=== PATIENT | female | born 1955 | race Caucasian/White ===

== ENCOUNTER → 2016-08-23 | Outpatient (CLI) | payer MEDICARE ==
--- NOTE | 2016-08-23 17:37 | REPMRS ---
Patient History The patient states she has not had a clinical breast exam in over a year. Patient is postmenopausal and has history of cancer in the left breast at age 56. Family history of endometrial cancer in sister at age 55. Malignant excisional biopsy of the left breast, 2011. Radiation therapy of the left breast, 2011. Took tamoxifen for 4 years. Digital Woman Screen Mammo: August 23, 2016 - Exam #: [id number] Bilateral CC and MLO view(s) were taken. Technologist: Jackelyn Mak, Technologist Prior study comparison: October 22, 2015, digital woman screen mammo performed at [facility]. October 08, 2014, digital woman screen mammo performed at [facility]. FINDINGS: There are scattered fibroglandular densities. There is a fairly symmetric fibroglandular pattern in both breasts. There has been no interval development of masses, areas of architectural distortion or clusters of microcalcifications typical of malignancy. ASSESSMENT: BI-RADS/ACR category 2 mammogram. Benign finding(s). Recommendation Routine screening mammogram of both breasts in 1 year (for women over age 40). This mammogram was interpreted with the aid of an FDA-approved computer-aided dectection system. Electronically Signed By: Timur Edwards MD 08/23/16 [id number]
== END ==
LOC: M WHC 14:36
PROVIDERS: ATTEND Nurse Practitioner Adult Health
DX: Z12.31 Encounter for screening mammogram for malignant neoplasm of breast (principal)

== ENCOUNTER → 2017-01-11 | Outpatient (REF) | payer MEDICARE ==
[2017-01-11 13:38] LABS: MEAN CORPUSCULAR HGB CONC 32.5 g/dl (32.0-36.5); MEAN CORPUSCULAR VOLUME 89.4 fl (80.0-96.0); RED CELL DISTRIBUTION WIDTH 14.8 % (11.5-14.5); WHITE BLOOD COUNT 7.7 10^3/uL (4.0-10.0)
[2017-01-11 14:02] LABS: ALBUMIN 3.9 GM/DL (3.2-5.2); ALBUMIN/GLOBULIN RATIO 0.93 (1.00-1.93); ALKALINE PHOSPHATASE 114 U/L (45-117); ALT/SGPT 32 U/L (12-78); ANION GAP 10 MEQ/L (8-16); AST/SGOT 14 U/L (15-37); BILIRUBIN,TOTAL 0.5 MG/DL (0.2-1.0); BLOOD UREA NITROGEN 18 MG/DL (7-18); CALCIUM LEVEL 9.9 MG/DL (8.8-10.2); CARBON DIOXIDE LEVEL 27 MEQ/L (21-32); CHLORIDE LEVEL 100 MEQ/L (98-107); CHOLESTEROL LEVEL 279 MG/DL (<200); CREATININE FOR GFR 0.82 MG/DL (0.55-1.02); GLOMERULAR FILTRATION RATE > 60.0 (>45); GLUCOSE, FASTING 111 MG/DL (80-110); POTASSIUM SERUM 4.6 MEQ/L (3.5-5.1); SODIUM LEVEL 137 MEQ/L (136-145); TOTAL PROTEIN 8.1 GM/DL (6.4-8.2); TRIGLYCERIDES LEVEL 167 MG/DL (<150)
== END ==
LOC: M SFHCPLAZ 08:54
PROVIDERS: ATTEND Nurse Practitioner Adult Health
DX: Z00.00 Encounter for general adult medical examination without abnormal findings (principal); E78.2 Mixed hyperlipidemia; R73.01 Impaired fasting glucose

== ENCOUNTER → 2017-05-22 | Outpatient (REF) | payer MEDICARE, BC ==
[2017-05-23 09:14] LABS: HEMATOCRIT 47.2 % (36.0-47.0); HEMOGLOBIN 15.1 g/dl (12.0-16.0); MEAN CORPUSCULAR VOLUME 90.9 fl (80.0-96.0); RED BLOOD COUNT 5.19 10^6/uL (4.00-5.40); WHITE BLOOD COUNT 7.9 10^3/uL (4.0-10.0)
[2017-05-23 09:15] LABS: BASO # 0.1 10^3/uL (0.0-0.2); BASO % 0.6 % (0.0-1.0); EOS # 0.2 10^3/uL (0.0-0.50); EOS % 2.2 % (0.0-3.0); IMMATURE GRANULOCYTE % 0.3 % (0-3.0); LYMPH # 1.8 10^3/uL (1.5-4.5); LYMPH % 22.3 % (24.0-44.0); MEAN CORPUSCULAR HEMOGLOBIN 29.1 pg (27.0-33.0); MONO # 0.4 10^3/uL (0.0-0.8); MONO % 4.8 % (0.0-5.0); NEUTROPHILS # 5.5 10^3/uL (1.8-7.7); NEUTROPHILS % 69.8 % (36.0-66.0); PLATELET COUNT, AUTOMATED 370 10^3/uL (150-450); RED CELL DISTRIBUTION WIDTH 14.1 % (11.5-14.5)
[2017-05-23 09:16] LABS: BLOOD UREA NITROGEN 15 MG/DL (7-18); GLUCOSE, FASTING 113 MG/DL (70-100)
[2017-05-23 09:17] LABS: ALKALINE PHOSPHATASE 109 U/L (45-117); ALT/SGPT 19 U/L (12-78); ANION GAP 9 MEQ/L (8-16); AST/SGOT 15 U/L (7-37); BILIRUBIN,TOTAL 0.5 MG/DL (0.2-1.0); CALCIUM LEVEL 9.5 MG/DL (8.8-10.2); CARBON DIOXIDE LEVEL 30 MEQ/L (21-32); CHLORIDE LEVEL 102 MEQ/L (98-107); CHOLESTEROL LEVEL 205 MG/DL (<200); CREATININE FOR GFR 0.77 MG/DL (0.55-1.30); GLOMERULAR FILTRATION RATE > 60.0 (>45); POTASSIUM SERUM 4.7 MEQ/L (3.5-5.1); SODIUM LEVEL 141 MEQ/L (136-145); TRIGLYCERIDES LEVEL 146 MG/DL (<150)
[2017-05-23 09:18] LABS: ALBUMIN 3.8 GM/DL (3.2-5.2); ALBUMIN/GLOBULIN RATIO 0.86 (1.00-1.93); CHOLESTEROL RISK RATIO 2.928 (<5); HDL CHOLESTEROL 70 MG/DL (>40); LDL CHOLESTEROL 105.8 MG/DL (<100); NON-HDL-C 135 MG/DL; TOTAL PROTEIN 8.2 GM/DL (6.4-8.2)
== END ==
LOC: M SFHCADAM 05-23 09:03
DX: R73.01 Impaired fasting glucose (principal); I10 Essential (primary) hypertension
CPT/HCPCS: 80053

== ENCOUNTER → 2018-01-11 | Outpatient (CLI) | payer MEDICARE | LOC: M WHC 13:13 | DX: Z12.31 Encounter for screening mammogram for malignant neoplasm of breast (principal) | CPT/HCPCS: 77067 ==

== ENCOUNTER → 2018-07-09 | Outpatient (REF) | payer MEDICARE ==
[2018-07-09 12:35] LABS: BASO % 0.5 % (0.0-1.0); EOS # 0.2 10^3/uL (0.0-0.50); EOS % 2.3 % (0.0-3.0); HEMOGLOBIN 14.4 g/dl (12.0-15.5); LYMPH % 26.5 % (24.0-44.0); MEAN CORPUSCULAR HEMOGLOBIN 29.6 pg (27.0-33.0); MEAN CORPUSCULAR HGB CONC 32.7 g/dl (32.0-36.5); MEAN CORPUSCULAR VOLUME 90.3 fl (80.0-96.0); MONO # 0.4 10^3/uL (0.0-0.8); MONO % 4.9 % (0.0-5.0); NEUTROPHILS # 4.8 10^3/uL (1.8-7.7); NEUTROPHILS % 65.3 % (36.0-66.0); PLATELET COUNT, AUTOMATED 355 10^3/uL (150-450); RED BLOOD COUNT 4.87 10^6/uL (4.00-5.40); WHITE BLOOD COUNT 7.4 10^3/uL (4.0-10.0)
[2018-07-09 13:15] LABS: ALBUMIN 3.7 GM/DL (3.2-5.2); ALT/SGPT 15 U/L (12-78); BILIRUBIN,TOTAL 0.4 MG/DL (0.2-1.0); BLOOD UREA NITROGEN 16 MG/DL (7-18); CALCIUM LEVEL 9.1 MG/DL (8.8-10.2); CARBON DIOXIDE LEVEL 25 MEQ/L (21-32); CHLORIDE LEVEL 104 MEQ/L (98-107); CREATININE FOR GFR 0.83 MG/DL (0.55-1.30); GLOMERULAR FILTRATION RATE > 60.0 (>45); GLUCOSE, FASTING 114 MG/DL (70-100); POTASSIUM SERUM 4.4 MEQ/L (3.5-5.1); SODIUM LEVEL 138 MEQ/L (136-145); TOTAL PROTEIN 7.5 GM/DL (6.4-8.2)
[2018-07-09 13:45] LABS: HEMOGLOBIN A1c 6.3 %
== END ==
LOC: M SFHCADAM 09:46
PROVIDERS: ATTEND Family Medicine
DX: I10 Essential (primary) hypertension (principal); R73.01 Impaired fasting glucose

== ENCOUNTER 2019-03-04 08:58 | Day surgery (SDC) | payer MEDICARE ==
[~2019-03-04] VITALS: Ht 160 cm; Wt 124.7 kg
[~2019-03-04 08:58] MED LIST: ASPI81TA85 PO; CLAR10CA3 PO; LISI-672 PO; NS 1,000 ML IV ONE; SIMV40TA20 PO; TRAM50TA2 PO
[2019-03-04] MEDS ORDERED: PROPOFOL 200 MG/20 ML VIAL As Ordered ONE (09:40)
[2019-03-04] MEDS ORDERED: LIDOCAINE 2% INJ 100 MG/5 ML SDV (FOR ANES.) As Ordered ONE (09:40)
--- NOTE | 2019-03-04 10:11 | ROOR ---
Patient Name: Roselyn Clark Procedure Date: 03/04/2019 9:39 AM Date of : 1955 Age: 64 Room: [facility] Gender: Female Note Status: Finalized Procedure: Colonoscopy Indications: High risk colon cancer surveillance: Personal history of colonic polyps Providers: Eugene OLIVEROS MD Referring MD: Trini KELLY DO Requestpati Provider: Medicines: Monitored Anesthesia Care Complications: No immediate complications. Procedure: Pre-Anesthesia Assessment: - The heart rate, respiratory rate, oxygen saturations, blood pressure, adequacy of pulmonary ventilation, and response to care were monitored throughout the procedure. The Colonoscope was introduced through the anus and advanced to the terminal ileum, with identification of the appendiceal orifice and IC valve. The colonoscopy was somewhat difficult due to inadequate bowel prep. The patient tolerated the procedure well. The quality of the bowel preparation was unsatisfactory. Findings: The perianal and digital rectal examinations were normal. Three sessile polyps were found in the sigmoid colon. The polyps were diminutive in size. These polyps were removed with a cold snare. Resection and retrieval were complete. Internal hemorrhoids were found during retroflexion. The hemorrhoids were moderate. Multiple medium-mouthed diverticula were found in the sigmoid colon. Impression: - Preparation of the colon was unsatisfactory. - Three diminutive polyps in the sigmoid colon, removed with a cold snare. Resected and retrieved. - Internal hemorrhoids. - Diverticulosis in the sigmoid colon. Recommendation: - Repeat colonoscopy in 1-2 years because the bowel preparation was poor. Eugene Oliveros MD Eugene OLIVEROS MD 03/04/2019 10:11:32 AM Electronically signed by Eugene OLIVEROS MD Number of Addenda: 0 Note Initiated On: 03/04/2019 9:39 AM Estimated Blood Loss: Estimated blood loss: none.
[2019-03-04 10:35] VITALS: BP 162/94
== END 2019-03-04 10:38 | disposition home or self-care (01) ==
LOC: M OPP 08:58
PROVIDERS: ATTEND Internal Medicine Gastroenterology
DX: Z12.11 Encounter for screening for malignant neoplasm of colon (principal); Z86.010 Personal history of colon polyps; K64.8 Other hemorrhoids; D12.5 Benign neoplasm of sigmoid colon; K57.30 Diverticulosis of large intestine without perforation or abscess without bleeding; Z79.82 Long term (current) use of aspirin; Z79.891 Long term (current) use of opiate analgesic; Z79.899 Other long term (current) drug therapy; Z85.3 Personal history of malignant neoplasm of breast

== ENCOUNTER → 2019-06-04 | Outpatient (CLI) | payer MEDICARE ==
[~2019-06-04] MED LIST changes: -NS 1,000 ML IV ONE
--- NOTE | 2019-06-04 14:45 | REPMRS ---
Patient History The patient states she had a clinical breast exam in March 2019. Family history of endometrial cancer at age 55 in sister. Malignant excisional biopsy of the left breast, 2011. Radiation therapy of the left breast, 2011. Took tamoxifen for 5 years. Digital Woman Screen Mammo: June 04, 2019 - Exam #: [id number] Bilateral CC and MLO view(s) were taken. Technologist: Jessi Montoya, RT Prior study comparison: January 11, 2018, bilateral digital woman screen mammo performed at [facility], [place]. August 23, 2016, digital woman screen mammo performed at [facility] [place]. October 22, 2015, digital woman screen mammo performed at [facility]. FINDINGS: There are scattered fibroglandular densities. There are stable post-treatment changes again noted in the left breast. There has been no change in the appearance of the mammogram from the prior studies. There is a mild amount of scattered fibroglandular density which is fairly symmetric. There is no interval development of dominant mass, architectural distortion, or grouped microcalcification suggestive of malignancy. 3-D tomosynthesis shows no additional findings. Assessment: BI-RADS/ACR category 2 mammogram. Benign Findings. Recommendation Routine screening mammogram of both breasts in 1 year (for women over age 40). This mammogram was interpreted with the aid of an FDA-approved computer-aided dectection system. Electronically Signed By: Allen Fuentes MD 06/04/19 [id number]
== END ==
LOC: M WHC 12:36
PROVIDERS: ATTEND Family Medicine
DX: Z12.31 Encounter for screening mammogram for malignant neoplasm of breast (principal)

== ENCOUNTER → 2020-04-01 | Outpatient (REF) | payer MEDICARE ==
[~2020-04-01] MED LIST changes: -ASPI81TA85 PO; +ASPI81TA86 PO; -LISI-672 PO; +LISI30TA4 PO
== END ==
LOC: M SFHCADAM 16:24
PROVIDERS: ATTEND Family Medicine
DX: R05 Cough (principal); Z11.52 Encounter for screening for COVID-19

== ENCOUNTER → 2020-05-27 | Outpatient (REF) | payer MEDICARE ==
[2020-05-27 12:54] LABS: BASO # 0.1 10^3/uL (0.0-0.2); BASO % 0.7 % (0.0-1.0); EOS # 0.1 10^3/uL (0.0-0.5); EOS % 1.3 % (0.0-3.0); HEMATOCRIT 47.2 % (36.0-47.0); HEMOGLOBIN 14.5 g/dl (12.0-15.5); LYMPH # 1.7 10^3/uL (1.5-5.0); LYMPH % 19.7 % (24.0-44.0); MEAN CORPUSCULAR HEMOGLOBIN 28.1 pg (27.0-33.0); MEAN CORPUSCULAR HGB CONC 30.7 g/dl (32.0-36.5); MEAN CORPUSCULAR VOLUME 91.5 fl (80.0-96.0); MONO # 0.4 10^3/uL (0.0-0.8); MONO % 4.6 % (2.0-8.0); NEUTROPHILS # 6.3 10^3/uL (1.5-8.5); NEUTROPHILS % 73.2 % (36.0-66.0); PLATELET COUNT, AUTOMATED 383 10^3/uL (150-450); RED BLOOD COUNT 5.16 10^6/uL (4.00-5.40); WHITE BLOOD COUNT 8.6 10^3/uL (4.0-10.0)
[2020-05-27 14:28] LABS: ALBUMIN 3.8 GM/DL (3.2-5.2); ALT/SGPT 17 U/L (12-78); BILIRUBIN,TOTAL 0.4 MG/DL (0.2-1.0); BLOOD UREA NITROGEN 21 MG/DL (7-18); CALCIUM LEVEL 9.8 MG/DL (8.8-10.2); CARBON DIOXIDE LEVEL 28 MEQ/L (21-32); CHLORIDE LEVEL 104 MEQ/L (98-107); CHOLESTEROL LEVEL 225 MG/DL (<200); CHOLESTEROL RISK RATIO 3.308 (<5); CREATININE FOR GFR 0.88 MG/DL (0.55-1.30); GLOMERULAR FILTRATION RATE > 60.0 (>45); GLUCOSE, FASTING 112 MG/DL (70-100); HDL CHOLESTEROL 68 MG/DL (>40); LDL CHOLESTEROL 128 MG/DL (<100); NON-HDL-C 157 MG/DL; POTASSIUM SERUM 4.9 MEQ/L (3.5-5.1); SODIUM LEVEL 138 MEQ/L (136-145); TOTAL PROTEIN 8.1 GM/DL (6.4-8.2); TRIGLYCERIDES LEVEL 146 MG/DL (<150)
[2020-05-27 15:48] LABS: HEMOGLOBIN A1c 6.2 %
== END ==
LOC: M SFHCADAM 11:00
PROVIDERS: ATTEND Family Medicine
DX: R73.01 Impaired fasting glucose (principal); Z79.899 Other long term (current) drug therapy

== ENCOUNTER → 2021-07-22 | Outpatient (CLI) | payer MEDICARE | LOC: M WHC 11:04 | PROVIDERS: ATTEND Family Medicine | DX: Z12.31 Encounter for screening mammogram for malignant neoplasm of breast (principal) ==

== ENCOUNTER → 2021-09-02 | Outpatient (REF) | payer MEDICARE ==
[~2021-09-02] MED LIST changes: +CALC600T60 PO; +VITA100093 PO; +ZINC1TAB2 PO
[2021-09-02 12:54] LABS: BASO # 0.1 10^3/uL (0.0-0.2); BASO % 0.7 % (0.0-1.0); EOS # 0.2 10^3/uL (0.0-0.5); EOS % 1.7 % (0.0-3.0); HEMATOCRIT 45.6 % (36.0-47.0); HEMOGLOBIN 14.4 g/dl (12.0-15.5); LYMPH # 2.2 10^3/uL (1.5-5.0); LYMPH % 23.3 % (24.0-44.0); MEAN CORPUSCULAR HEMOGLOBIN 28.8 pg (27.0-33.0); MEAN CORPUSCULAR HGB CONC 31.6 g/dl (32.0-36.5); MEAN CORPUSCULAR VOLUME 91.2 fl (80.0-96.0); MONO # 0.4 10^3/uL (0.0-0.8); MONO % 4.3 % (2.0-8.0); NEUTROPHILS # 6.4 10^3/uL (1.5-8.5); NEUTROPHILS % 69.6 % (36.0-66.0); PLATELET COUNT, AUTOMATED 379 10^3/uL (150-450); WHITE BLOOD COUNT 9.2 10^3/uL (4.0-10.0)
[2021-09-02 15:45] LABS: ALBUMIN 3.4 GM/DL (3.2-5.2); ALT/SGPT 19 U/L (12-78); BILIRUBIN,TOTAL 0.3 MG/DL (0.2-1.0); BLOOD UREA NITROGEN 13 MG/DL (7-18); CALCIUM LEVEL 10.1 MG/DL (8.8-10.2); CARBON DIOXIDE LEVEL 26 MEQ/L (21-32); CHLORIDE LEVEL 106 MEQ/L (98-107); CHOLESTEROL LEVEL 229 MG/DL (<200); CHOLESTEROL RISK RATIO 3.318 (<5); CREATININE FOR GFR 0.86 MG/DL (0.55-1.30); GLOMERULAR FILTRATION RATE > 60.0 (>45); GLUCOSE, FASTING 119 MG/DL (70-100); HDL CHOLESTEROL 69 MG/DL (>40); LDL CHOLESTEROL 133 MG/DL (<100); NON-HDL-C 160 MG/DL; POTASSIUM SERUM 4.7 MEQ/L (3.5-5.1); SODIUM LEVEL 141 MEQ/L (136-145); TOTAL PROTEIN 7.7 GM/DL (6.4-8.2); TRIGLYCERIDES LEVEL 133 MG/DL (<150)
== END ==
LOC: M SFHCADAM 10:34
PROVIDERS: ATTEND Family Medicine
DX: Z00.00 Encounter for general adult medical examination without abnormal findings (principal); R73.03 Prediabetes

== ENCOUNTER → 2021-09-12 | Outpatient (CLI) | payer MEDICARE | LOC: M LABSMTC 09:26 | PROVIDERS: ATTEND Anesthesiology | DX: Z01.818 Encounter for other preprocedural examination (principal); Z11.52 Encounter for screening for COVID-19 ==

== ENCOUNTER 2021-09-15 07:39 | Day surgery (SDC) | payer MEDICARE ==
[~2021-09-15] VITALS: Ht 162.6 cm; Wt 128.8 kg
[~2021-09-15 07:39] MED LIST changes: +LIDOCAINE 2% 100MG/5ML SDV (FOR ANES.) As Ordered ONE; +NS 1,000 ML IV ONE; +propofoL 200 MG/20 ML VIAL As Ordered ONE
[2021-09-15 09:35] VITALS: BP 143/98
== END 2021-09-15 09:52 | disposition home or self-care (01) ==
LOC: M OPP 07:39
PROVIDERS: ATTEND Surgery
DX: Z12.11 Encounter for screening for malignant neoplasm of colon (principal); Z86.010 Personal history of colon polyps; D12.6 Benign neoplasm of colon, unspecified; K57.30 Diverticulosis of large intestine without perforation or abscess without bleeding; Z85.3 Personal history of malignant neoplasm of breast; Z80.41 Family history of malignant neoplasm of ovary; Z79.02 Long term (current) use of antithrombotics/antiplatelets; Z79.1 Long term (current) use of non-steroidal anti-inflammatories (NSAID); Z79.891 Long term (current) use of opiate analgesic; Z79.899 Other long term (current) drug therapy; Z92.21 Personal history of antineoplastic chemotherapy

== ENCOUNTER → 2022-03-21 | Outpatient (CLI) | payer MEDICARE ==
[~2022-03-21] MED LIST changes: -LIDOCAINE 2% 100MG/5ML SDV (FOR ANES.) As Ordered ONE; -NS 1,000 ML IV ONE; -propofoL 200 MG/20 ML VIAL As Ordered ONE
== END ==
LOC: M PLAIMG 12:45
PROVIDERS: ATTEND Physician Assistant
DX: J02.9 Acute pharyngitis, unspecified (principal); R22.0 Localized swelling, mass and lump, head

== ENCOUNTER → 2022-03-22 | Outpatient (CLI) | payer MEDICARE ==
[~2022-03-22] MED LIST changes: +IBUP200C28 PO
[2022-03-22 17:22] LABS: BASO # 0.1 10^3/uL (0.0-0.2); BASO % 0.5 % (0.0-1.0); BILIRUBIN,TOTAL 0.3 MG/DL (0.3-1.2); C REACTIVE PROTEIN QUANTITATIV 30.1 MG/DL (<1.0); CALCIUM LEVEL 9.5 MG/DL (8.3-10.6); CREATININE FOR GFR 1.4 MG/DL (0.55-1.30); EOS # 0.1 10^3/uL (0.0-0.5); EOS % 0.4 % (0.0-3.0); GLOMERULAR FILTRATION RATE 39.7 (>45); HEMOGLOBIN 13.6 g/dl (12.0-15.5); LYMPH # 1.5 10^3/uL (1.5-5.0); LYMPH % 9.6 % (24.0-44.0); MEAN CORPUSCULAR HEMOGLOBIN 28.1 pg (27.0-33.0); MEAN CORPUSCULAR HGB CONC 30.9 g/dl (32.0-36.5); MEAN CORPUSCULAR VOLUME 90.9 fl (80.0-96.0); MONO # 0.9 10^3/uL (0.0-0.8); NEUTROPHILS # 12.5 10^3/uL (1.5-8.5); NEUTROPHILS % 82.8 % (36.0-66.0); PLATELET COUNT, AUTOMATED 470 10^3/uL (150-450); POTASSIUM SERUM 4.7 MMOL/L (3.5-5.1); RED BLOOD COUNT 4.84 10^6/uL (4.00-5.40); TOTAL PROTEIN 7.5 G/DL (5.7-8.2); WHITE BLOOD COUNT 15.1 10^3/uL (4.0-10.0)
[2022-03-22 18:20] LABS: ERYTHROCYTE SEDIMENTATION RATE > 130 mm/hr (0-30)
== END ==
LOC: M PLALAB 15:07
PROVIDERS: ATTEND Physician Assistant
DX: J02.9 Acute pharyngitis, unspecified (principal); R22.0 Localized swelling, mass and lump, head; R22.1 Localized swelling, mass and lump, neck

== ENCOUNTER 2022-03-23 19:56 | Emergency (ER) | payer MEDICARE ==
[~2022-03-23] VITALS: Ht 162.6 cm; Wt 125.0 kg
[~2022-03-23 19:56] MED LIST changes: -IBUP200C28 PO; -ISOVUE-370 76% 100ML VIAL As Ordered ONE
[2022-03-23 19:59] VITALS: BP 127/66
[2022-03-23] MEDS ORDERED: IBUP200C28 PO (20:20)
== END 2022-03-24 01:50 | disposition left against medical advice (07) ==
LOC: M ED 19:56
DX: Z53.21 Procedure and treatment not carried out due to patient leaving prior to being seen by health care provider (principal)

== ENCOUNTER → 2022-03-23 | Outpatient (CLI) | payer MEDICARE ==
[~2022-03-23] MED LIST changes: +ISOVUE-370 76% 100ML VIAL As Ordered ONE
== END ==
LOC: M RAD 14:28
PROVIDERS: ATTEND Physician Assistant
DX: J02.9 Acute pharyngitis, unspecified (principal); R22.0 Localized swelling, mass and lump, head; R22.1 Localized swelling, mass and lump, neck
CPT/HCPCS: 70491; Q9967

== ENCOUNTER → 2022-12-11 | Outpatient (REF) | payer MEDICARE ==
[~2022-12-11] MED LIST changes: +IBUP200C28 PO
[2022-12-11 13:17] LABS: BASO # 0.1 10^3/uL (0.0-0.2); BASO % 0.8 % (0.0-1.0); EOS # 0.2 10^3/uL (0.0-0.5); EOS % 2.8 % (0.0-3.0); HEMATOCRIT 42.7 % (36.0-47.0); HEMOGLOBIN 13.2 g/dl (12.0-15.5); LYMPH # 2.2 10^3/uL (1.5-5.0); LYMPH % 27.2 % (24.0-44.0); MEAN CORPUSCULAR HEMOGLOBIN 28.5 pg (27.0-33.0); MEAN CORPUSCULAR HGB CONC 30.9 g/dl (32.0-36.5); MEAN CORPUSCULAR VOLUME 92.2 fl (80.0-96.0); MONO # 0.4 10^3/uL (0.0-0.8); MONO % 5.4 % (2.0-8.0); NEUTROPHILS # 5.1 10^3/uL (1.5-8.5); NEUTROPHILS % 63.5 % (36.0-66.0); PLATELET COUNT, AUTOMATED 387 10^3/uL (150-450); RED BLOOD COUNT 4.63 10^6/uL (4.00-5.40)
[2022-12-11 13:37] LABS: HEMOGLOBIN A1c 5.4 % (4.0-6.0)
[2022-12-11 13:45] LABS: ALBUMIN 3.6 G/DL (3.2-5.2); ALKALINE PHOSPHATASE 102 U/L (46-116); ALT/SGPT 15 U/L (7.0-40); AST/SGOT 13 U/L (<34); BILIRUBIN,TOTAL 0.4 MG/DL (0.3-1.2); BLOOD UREA NITROGEN 20 MG/DL (9-23); CALCIUM LEVEL 9.1 MG/DL (8.3-10.6); CARBON DIOXIDE LEVEL 30 MMOL/L (20-31); CHLORIDE LEVEL 104 MMOL/L (98-107); CHOLESTEROL LEVEL 231 MG/DL (<200); CHOLESTEROL RISK RATIO 3.27 (<5); CREATININE FOR GFR 0.71 MG/DL (0.55-1.30); GLOMERULAR FILTRATION RATE > 60.0 (>45); GLUCOSE, FASTING 109 MG/DL (74-106); HDL CHOLESTEROL 70.5 MG/DL (>40); LDL CHOLESTEROL 135.3 MG/DL (<100); NON-HDL-C 160.5 MG/DL; POTASSIUM SERUM 5.3 MMOL/L (3.5-5.1); SODIUM LEVEL 140 MMOL/L (136-145); TOTAL PROTEIN 7.4 G/DL (5.7-8.2); TRIGLYCERIDES LEVEL 126 MG/DL (<150)
== END ==
LOC: M SFHCADAM 09:45
PROVIDERS: ATTEND Family Medicine
DX: I10 Essential (primary) hypertension (principal); E78.00 Pure hypercholesterolemia, unspecified; R73.01 Impaired fasting glucose

== ENCOUNTER → 2023-12-07 | Outpatient (REF) | payer MEDICARE ==
[2023-12-07 13:12] LABS: BASO # 0.1 10^3/uL (0.0-0.2); BASO % 0.7 % (0.0-1.0); EOS # 0.3 10^3/uL (0.0-0.5); EOS % 3.4 % (0.0-3.0); HEMATOCRIT 43.7 % (36.0-47.0); HEMOGLOBIN 13.4 g/dl (12.0-15.5); LYMPH # 2.1 10^3/uL (1.5-5.0); LYMPH % 25.2 % (24.0-44.0); MEAN CORPUSCULAR HEMOGLOBIN 28.4 pg (27.0-33.0); MEAN CORPUSCULAR HGB CONC 30.7 g/dl (32.0-36.5); MEAN CORPUSCULAR VOLUME 92.6 fl (80.0-96.0); MONO # 0.5 10^3/uL (0.0-0.8); MONO % 6.4 % (2.0-8.0); NEUTROPHILS # 5.3 10^3/uL (1.5-8.5); NEUTROPHILS % 64.1 % (36.0-66.0); PLATELET COUNT, AUTOMATED 389 10^3/uL (150-450); RED BLOOD COUNT 4.72 10^6/uL (4.00-5.40); WHITE BLOOD COUNT 8.3 10^3/uL (4.0-10.0)
[2023-12-07 13:15] LABS: ALBUMIN 3.5 G/DL (3.2-5.2); ALKALINE PHOSPHATASE 107 U/L (46-116); ALT/SGPT 14 U/L (7.0-40); AST/SGOT 9 U/L (<34); BILIRUBIN,TOTAL 0.4 MG/DL (0.3-1.2); BLOOD UREA NITROGEN 19 MG/DL (9-23); CALCIUM LEVEL 9.8 MG/DL (8.3-10.6); CARBON DIOXIDE LEVEL 31 MMOL/L (20-31); CHLORIDE LEVEL 107 MMOL/L (98-107); CHOLESTEROL LEVEL 217 MG/DL (<200); CREATININE FOR GFR 0.67 MG/DL (0.55-1.30); GLOMERULAR FILTRATION RATE > 60.0 (>39); GLUCOSE, FASTING 107 MG/DL (74-106); HDL CHOLESTEROL 60.2 MG/DL (>40); LDL CHOLESTEROL 133.8 MG/DL (<100); NON-HDL-C 156.8 MG/DL; POTASSIUM SERUM 5.2 MMOL/L (3.5-5.1); SODIUM LEVEL 140 MMOL/L (136-145); TOTAL PROTEIN 7.5 G/DL (5.7-8.2); TRIGLYCERIDES LEVEL 115 MG/DL (<150)
[2023-12-07 13:20] LABS: THYROID STIMULATING HORMONE 3.358 uIU/ML (0.55-4.78)
== END ==
LOC: M SFHCADAM 09:12
PROVIDERS: ATTEND Family Medicine
DX: Z00.00 Encounter for general adult medical examination without abnormal findings (principal); Z79.899 Other long term (current) drug therapy

== ENCOUNTER → 2023-12-21 | Outpatient (CLI) | payer MEDICARE | LOC: M PLAIMG 15:02 | PROVIDERS: ATTEND Family Medicine | DX: M25.561 Pain in right knee (principal); M85.861 Other specified disorders of bone density and structure, right lower leg ==

== ENCOUNTER → 2024-01-31 | Outpatient (CLI) | payer MEDICARE | LOC: M WHC 13:50 | PROVIDERS: ATTEND Family Medicine | DX: Z12.31 Encounter for screening mammogram for malignant neoplasm of breast (principal); Z13.820 Encounter for screening for osteoporosis; Z78.0 Asymptomatic menopausal state ==

== ENCOUNTER → 2024-06-18 | Outpatient (REF) | payer MEDICARE | LOC: M SFHCADAM 15:39 | PROVIDERS: ATTEND Family Medicine | DX: Z53.9 Procedure and treatment not carried out, unspecified reason (principal) ==

== ENCOUNTER → 2024-07-11 | Outpatient (REF) | payer MEDICARE ==
[2024-07-11 13:47] LABS: THYROID STIMULATING HORMONE 3.583 uIU/ML (0.55-4.78)
[2024-07-11 13:58] LABS: FREE T4 1.13 NG/DL (0.89-1.76)
[2024-07-11 14:03] LABS: ALBUMIN 3.7 G/DL (3.2-5.2); BILIRUBIN,TOTAL 0.4 MG/DL (0.3-1.2); CALCIUM LEVEL 9.8 MG/DL (8.3-10.6); CREATININE FOR GFR 0.81 MG/DL (0.55-1.30); GLOMERULAR FILTRATION RATE 77.6 (>39); POTASSIUM SERUM 4.7 MMOL/L (3.5-5.1); TOTAL PROTEIN 7.5 G/DL (5.7-8.2)
== END ==
LOC: M SFHCADAM 09:29
PROVIDERS: ATTEND Family Medicine
DX: E66.01 Morbid (severe) obesity due to excess calories (principal); Z68.43 Body mass index [BMI] 50.0-59.9, adult; R73.01 Impaired fasting glucose; Z79.899 Other long term (current) drug therapy

== ENCOUNTER → 2024-10-01 | Outpatient (CLI) | payer MEDICARE ==
[2024-10-01 14:15] LABS: ALT/SGPT 20.0 U/L (7.0-40); AST/SGOT 16.0 U/L (<34); CALCIUM LEVEL 9.8 MG/DL (8.3-10.6); CARBON DIOXIDE LEVEL 29.0 MMOL/L (20-31); CHLORIDE LEVEL 104.0 MMOL/L (98-107); CREATININE FOR GFR 0.77 MG/DL (0.55-1.30); GLOMERULAR FILTRATION RATE 82.4 (>39); POTASSIUM SERUM 5.0 MMOL/L (3.5-5.1); SODIUM LEVEL 144.0 MMOL/L (136-145)
[2024-10-01 14:16] LABS: BASO # 0.1 10^3/uL (0.0-0.2); BASO % 0.8 % (0.0-1.0); EOS # 0.1 10^3/uL (0.0-0.5); EOS % 1.4 % (0.0-3.0); LYMPH # 1.5 10^3/uL (1.5-5.0); LYMPH % 19.3 % (24.0-44.0); MONO # 0.3 10^3/uL (0.0-0.8); MONO % 3.3 % (2.0-8.0); NEUTROPHILS # 5.8 10^3/uL (1.5-8.5); NEUTROPHILS % 74.3 % (36.0-66.0); PLATELET COUNT, AUTOMATED 356 10^3/uL (150-450)
== END ==
LOC: M PLALAB 11:04
PROVIDERS: ATTEND Family Medicine
DX: Z01.818 Encounter for other preprocedural examination (principal)

== ENCOUNTER → 2025-02-17 | Outpatient (CLI) | payer MEDICARE | LOC: M ADAMS 14:30 | PROVIDERS: ATTEND Family Medicine | DX: M51.369 Other intervertebral disc degeneration, lumbar region without mention of lumbar back pain or lower extremity pain (principal); M25.551 Pain in right hip; R20.0 Anesthesia of skin; Z96.641 Presence of right artificial hip joint ==

== ENCOUNTER → 2025-03-13 | Outpatient (CLI) | payer MEDICARE | LOC: M WHC 14:07 | PROVIDERS: ATTEND Family Medicine | DX: Z12.31 Encounter for screening mammogram for malignant neoplasm of breast (principal) ==